=== PATIENT | female | born 1965 | race Caucasian/White ===

== ENCOUNTER 2016-06-14 09:03 | Emergency (ER) | payer OTHER ==
[~2016-06-14] VITALS: Ht 157.5 cm; Wt 63.5 kg
[2016-06-14 09:10] VITALS: BP 125/80
--- NOTE | 2016-06-14 09:17 | NUR ---
PT. C/O LOWER BACK PAIN RADIATING DOWN LEFT LEG FOR THE PAST COUPLE WEEKS, SHE THINKS SHE INJURED IT BENDING OVER, WAS SEEN AT URGENT CARE 05/30/16 BUT NO XRAYS WERE DONE, PT. AAOX4, BREATHING EVEN AND UNLABORED, AMBULATORY WITH LIMP, PT. STATES ITS HARD TO TURN HER LEFT FOOT, PAIN AT 9/10, WILL CONTINUE TO MONITOR
--- NOTE | 2016-06-14 09:30 | NUR ---
PT. TAKEN TO RADIOLOGY
--- NOTE | 2016-06-14 09:38 | NUR ---
PT. RETURNED FROM RADIOLOGY
--- NOTE | 2016-06-14 09:47 | NUR ---
Dr. Kaur evaluating patient at bedside.
[2016-06-14] MEDS ORDERED: fentaNYL 0.05 MG/ML VIAL IM ONE (10:00)
--- NOTE | 2016-06-14 10:19 | NUR ---
Dr. Kaur re-evaluating patient at bedside.
[2016-06-14 10:35] VITALS: BP 139/89
--- NOTE | 2016-06-14 10:36 | NUR ---
Patient discharged with v/s stable. Written and verbal after care instructions given and explained. Patient alert, oriented and verbalized understanding of instructions. Ambulatory with steady gait. All questions addressed prior to discharge. ID band removed. Patient advised to follow up with PMD. Rx of NORCO AND FLEXERIL given. Patient educated on indication of medication including possible reaction and side effects. Opportunity to ask questions provided and answered.
== END 2016-06-14 10:36 | disposition home or self-care (01) ==
LOC: MED 09:33
DX: M54.42 Lumbago with sciatica, left side (principal)
CPT/HCPCS: 72100; 81002; 81025; 96372; 99284; J3010